=== PATIENT | female | born 1990 | race Two or more races ===

== ENCOUNTER 2016-07-07 09:02 | Emergency (ER) | payer MEDICAID ==
[~2016-07-07] VITALS: Ht 157.5 cm; Wt 158.8 kg
[2016-07-07] MEDS ORDERED: VENLAFAXINE HCL25 MG ORAL (09:22)
[2016-07-07] MEDS ORDERED: ZOLOFT25 MG ORAL (09:22)
[2016-07-07] MEDS ORDERED: ABILIFY10 MG ORAL (09:22)
[2016-07-07] MEDS ORDERED: TRAZODONE HCL150 MG ORAL (09:22)
[2016-07-07] MEDS ORDERED: KLONOPIN1 MG ORAL (09:22)
[2016-07-07] MEDS ORDERED: LAMICTAL150 MG ORAL (09:22)
[2016-07-07] MEDS ORDERED: ROBAXIN-750750 MG PO (09:46)
[2016-07-07 10:14] VITALS: BP 119/62
--- NOTE | 2016-07-07 10:14 | Emergency Room Report ---
History of Present Illness General Chief Complaint: Lower Back Pain or Injury Source: Patient Present Illness HPI 25YO F with left lower back pain this morning after lifting up heavy vacuum upstairs. Sharp left sided non-radiating pain. Worse with movement. Took OTC tylenol and ibuprofen with some improvement. Denies abd pain, nausea/vomiting, urinary complaints. Feels well otherwise. Allergies: Coded Allergies: No Known Allergies (Unverified , 07/07/16) Patient History Past Medical History: none Past Surgical History: none Pertinent Family History: none Social History: Denies: alcohol use, drug use, smoking Last Menstrual Period: Unk Now: No Immunizations: UTD Reviewed Nursing Documentation: PMH: Agreed, PSxH: Agreed Nursing Documentation-PMH Past Medical History: No History, Except For Hx Asthma: Yes History Of Psychiatric Problem: Yes - Major depression, Bipolar Review of Systems All Other Systems: negative except mentioned in HPI Physical Exam Vital Signs Date Time Temp Pulse Resp B/P Pulse Ox O2 Delivery O2 Flow Rate FiO2 07/07/16 09:14 98.4 100 14 127/59 94 Room Air Sp02 EP Interpretation: reviewed, normal General Appearance: normal inspection, well appearing, no apparent distress, alert, GCS 15, non-toxic, obese Head: normocephalic, atraumatic Eyes: bilateral eye EOMI, bilateral eye PERRL ENT: normal ENT inspection, hearing grossly normal, normal voice Neck: normal inspection, full range of motion, supple, no bony tend Respiratory: normal inspection, lungs clear, normal breath sounds, no respiratory distress, no retraction, no wheezing Cardiovascular #1: regular rate, rhythm, no edema Gastrointestinal: normal inspection, normal bowel sounds, non tender, soft, no guarding, no hernia Genitourinary: no CVA tenderness Musculoskeletal: normal inspection, back normal, normal range of motion, Johana' s Sign negative Neurologic: normal inspection, alert, oriented x3, responsive, equipment service lead III-XII nml as tested, motor strength/tone normal, speech normal Psychiatric: normal inspection, judgement/insight normal, mood/affect normal Skin: normal inspection Medical Decision Making Diagnostic Impression: Primary Impression: Low back pain Qualified Codes: M54.5 - Low back pain ER Course Low back pain with known exacerbating event. VSS. Afebrile No focal neuro deficits and low supsicion for acute cord compression IM toradol given in ED Rx Robaxin PMD followup DC home Last Vital Signs Date Time Temp Pulse Resp B/P Pulse Ox O2 Delivery O2 Flow Rate FiO2 07/07/16 09:14 98.4 100 14 127/59 94 Room Air Status: improved Disposition: HOME, SELF-CARE Condition: Improved Scripts Methocarbamol* (ROBAXIN-750*) 750 Mg Tablet 750 MG PO TID for back pain for 7 Days, #30 TAB 0 Refills Prov: MAR ANNE M.D. 07/07/16 Referrals: NON PHYSICIAN (PCP) Patient Instructions: Back Pain, Adult MAR ANNE M.D. Jul 07, 2016 10:14
[2016-07-07] MEDS ORDERED: Ketorolac 60mg Inj IM ONE (10:15)
[2016-07-07 10:16] VITALS: BP 119/62
== END 2016-07-07 10:16 | disposition home or self-care (01) ==
LOC: EMR 09:45
DX: M54.5 Low back pain (principal); J45.909 Unspecified asthma, uncomplicated; F31.9 Bipolar disorder, unspecified
CPT/HCPCS: 96372; 99283

== ENCOUNTER 2016-07-13 13:46 | Emergency (ER) | payer MEDICAID ==
[~2016-07-13] VITALS: Ht 157.5 cm; Wt 159.7 kg
[~2016-07-13 13:46] MED LIST: ABILIFY10 MG ORAL; KLONOPIN1 MG ORAL; LAMICTAL150 MG ORAL; ROBAXIN-750750 MG PO; TRAZODONE HCL150 MG ORAL; VENLAFAXINE HCL25 MG ORAL; ZOLOFT25 MG ORAL
[2016-07-13 13:53] VITALS: BP 149/102
[2016-07-13] MEDS ORDERED: Ketorolac 30mg Inj IM ONE (14:45)
[2016-07-13] MEDS ORDERED: CEPHALEXIN500 MG ORAL (15:09)
[2016-07-13] MEDS ORDERED: TRAMADOL HCL50 MG ORAL (15:09)
[2016-07-13] MEDS ORDERED: BACTRIM DS TAB1 EAC1 ORAL (15:09)
[2016-07-13] MEDS ORDERED: TESSALON PERLE100 MG ORAL (15:09)
[2016-07-13 15:31] VITALS: BP 139/99
--- NOTE | 2016-07-13 16:54 | Emergency Room Report ---
History of Present Illness General Chief Complaint: Upper Respiratory Illness Source: Patient Present Illness [facility] The patient is a 25-year-old female presenting for sore throat, dry cough, and subjective fevers. She denies any known sick contacts or recent trouble. She states pain is a 10 out of 10 burning sensation to the back of the throat. Pain worse with swallowing. She has also noticed swelling and pain to the right vaginal area which she noticed this morning. This pain is a 5 at 10 dull ache and does not radiate. Pain worse with touch. She denies any other symptoms including nausea, vomiting, shortness of breath, chest pain, vaginal discharge, dysuria, hematuria Allergies: Coded Allergies: No Known Allergies (Unverified , 07/07/16) Patient History Past Medical History: see triage record Pertinent Family History: none Last Menstrual Period: on period Reviewed Nursing Documentation: PMH: Agreed, PSxH: Agreed Nursing Documentation-PMH Past Medical History: No History, Except For Hx Asthma: Yes Review of Systems All Other Systems: negative except mentioned in HPI Physical Exam Vital Signs Date Time Temp Pulse Resp B/P Pulse Ox O2 Delivery O2 Flow Rate FiO2 07/13/16 13:53 98.4 18 149/102 95 Room Air 07/13/16 13:53 103 Sp02 EP Interpretation: reviewed, normal General Appearance: no apparent distress, alert, GCS 15, non-toxic Head: normocephalic, atraumatic Eyes: bilateral eye PERRL, bilateral eye normal inspection ENT: hearing grossly normal, no angioedema, normal voice, uvula midline, tonsillar swelling, pharyngeal erythema, tonsillar exudate Neck: full range of motion, supple/symm/no masses Respiratory: chest non-tender, lungs clear, normal breath sounds, speaking full sentences Cardiovascular #1: regular rate, rhythm, no edema Gastrointestinal: normal bowel sounds, non tender, soft, non-distended, no guarding, no rebound Genitourinary: other - R ext vagina 2cm indurated abscess Musculoskeletal: back normal, gait/station normal, normal range of motion, non- tender Neurologic: alert, oriented x3, responsive, motor strength/tone normal, sensory intact, speech normal Psychiatric: judgement/insight normal, memory normal, mood/affect normal, no suicidal/homicidal ideation Skin: normal color, warm/dry, well hydrated Medical Decision Making PA Attestation Dr. Barajas is my supervising physician. Patient management was discussed with my supervising physician Diagnostic Impression: Primary Impression: Pharyngitis, acute Qualified Codes: J02.9 - Acute pharyngitis, unspecified Additional Impression: Abscess ER Course The patient is a 25-year-old female presenting for sore throat, dry cough, and subjective fevers. Differential diagnosis include but not limited to pharyngitis, sinusitis, AOM, bronchitis, PNA Differential diagnoses considered but not limited to: abscess, cellulitis, insect bite Physical exam: Vitals within normal limits. Afebrile. No apparent distress HEENT exam: There is bilateral tonsillar edema, erythema, and exudate. Uvula midline. Moist mucous membranes. There is bilateral cervical lymphadenopathy. Lungs are clear to auscultation bilaterally R ext vagina 2cm indurated abscess. TTP. No vaginal DC The patient will be discharged home with a prescription for keflex and bactrim and is given ER precautions. Patient will followup with primary care The patient will return for incision and drainage of the abscess if needed. Indications are given to her Last Vital Signs Date Time Temp Pulse Resp B/P Pulse Ox O2 Delivery O2 Flow Rate FiO2 07/13/16 15:31 98.4 70 16 139/99 99 Room Air Status: improved Disposition: HOME, SELF-CARE Condition: Improved Scripts Benzonatate* (TESSALON PERLE*) 100 Mg Capsule 100 MG ORAL THREE TIMES A DAY, #21 PERLE Prov: TERZIAN,ERNIE P.A. 07/13/16 Trimethoprim/Sulfamethoxazole 160/800* (BACTRIM DS TABLET*) 1 Each Tablet 1 TAB ORAL TWICE A DAY, #14 TAB Prov: TERZIAN,ERNIE P.A. 07/13/16 Cephalexin* (KEFLEX*) 500 Mg Capsule 500 MG ORAL EVERY 6 HOURS, #28 CAP Prov: TERZIAN,ERNIE P.A. 07/13/16 Tramadol Hcl* (ULTRAM*) 50 Mg Tablet 50 MG ORAL Q6H Y for For Pain, #10 TAB 0 Refills Prov: TERZIAN,ERNIE P.A. 07/13/16 Patient Instructions: Abscess, Upper Respiratory Infection, Adult Additional Instructions: I discussed my findings with the patient. All questions and concerns have been answered. Treatment and medication compliance have been addressed. I advised the patient that they need to follow up with PMD in 3-5 days. Return to ED if symptoms worsen, new symptoms arise, or if needed for any reason. Patient verbalized understanding of discharge instructions. ERNIE ANDRADE Jul 13, 2016 16:54
== END 2016-07-13 15:32 | disposition home or self-care (01) ==
LOC: EMR 14:25
DX: J02.9 Acute pharyngitis, unspecified (principal); N76.0 Acute vaginitis; J45.909 Unspecified asthma, uncomplicated
CPT/HCPCS: 96372; 99284; J1885